=== PATIENT | female | born 1935 | race Caucasian/White ===

== ENCOUNTER → 2019-02-21 05:00 | Outpatient (REF) | payer SELFPAY ==
[2019-02-21 09:25] LABS: Anion Gap 7 (5-15); BUN 13 mg/dL (7-18); BUN/Creat Ratio 17.1 RATIO (10-20); Calcium,Total 8.9 mg/dL (8.5-10.1); Chloride 103 mmol/L (98-107); Creatinine, Serum 0.76 mg/dL (0.55-1.02); EST Glomerular Filtration Rate 77 mL/min (>60); Est Glom Filt Rate - Afr Amer 93 mL/min (>60); Glucose 109 mg/dL (74-106); Potassium 4.2 mmol/L (3.5-5.1); Sodium Level 136 mmol/L (136-145)
== END ==
LOC: OLS.ACH 05:00
PROVIDERS: Visit Provider Family Medicine
DX: I67.89 Other cerebrovascular disease (principal)
CPT/HCPCS: 36415; 80048

== ENCOUNTER → 2019-03-21 | Outpatient (REF) | payer SELFPAY ==
[2019-03-21 07:50] LABS: Cholesterol 136 mg/dL (200); High Density Lipoprotein 38 mg/dL; Triglycerides 90 mg/dL; Very Low Density Lipoprotein 18 mg/dL (5-40)
== END | disposition home or self-care (01) ==
LOC: OLS.ACH 05:00
PROVIDERS: Visit Provider Family Medicine
DX: I69.311 Memory deficit following cerebral infarction (principal)
CPT/HCPCS: 36415; 80061

== ENCOUNTER → 2019-03-23 | Outpatient (REF) | payer SELFPAY ==
[2019-03-25 13:58] LABS: Color, Urine Yellow (Yellow); Glucose, Dipstick Normal (Normal); Ketone-Dipstick Negative (Negative); Leukocyte Esterase-Dipstick Negative /ul (Negative); Nitrite-Dipstick Negative (Negative); Occult Blood-Urine Negative /ul (Negative); Protein-Dipstick Negative (Negative); Urine Bilirubin Dipstick Negative (Negative); Urine Clarity Clear (Clear); Urine Urobilinogen Normal (Normal)
== END | disposition home or self-care (01) ==
LOC: OLS.ACH 10:05
PROVIDERS: Visit Provider Family Medicine
DX: R39.15 Urgency of urination (principal)
CPT/HCPCS: 81002; 87086